=== PATIENT | female | born 1960 | race Caucasian/White ===

== ENCOUNTER 2019-10-03 07:07 | Day surgery (SDC) | payer OTHER ==
[~2019-10-03 07:07] MED LIST: COZAAR50 MG PO; PROLIA IM
== END 2019-10-03 11:30 | disposition home or self-care (01) ==
LOC: CIR.AMB 07:07
PROVIDERS: ATTEND Urology
DX: N20.0 Calculus of kidney (principal); Z20.828 Contact with and (suspected) exposure to other viral communicable diseases

== ENCOUNTER 2019-11-03 15:03 | Outpatient (CLI) | payer OTHER | END 2019-11-03 15:15 | disposition home or self-care (01) | LOC: RAD 15:03 | PROVIDERS: ATTEND Urology | DX: N20.0 Calculus of kidney (principal) ==

== ENCOUNTER 2019-12-19 09:00 | Day surgery (SDC) | payer OTHER ==
[~2019-12-19 09:00] MED LIST changes: +PROMETRIUM200 MG PO; +[UNRECOGNIZED DRUG - REMARK] PO
== END 2019-12-19 15:10 | disposition home or self-care (01) ==
LOC: CIR LITO 09:00
PROVIDERS: ATTEND Urology
DX: N20.0 Calculus of kidney (principal); Z20.828 Contact with and (suspected) exposure to other viral communicable diseases

== ENCOUNTER 2019-12-27 09:15 | Outpatient (CLI) | payer OTHER | END 2019-12-27 09:16 | disposition home or self-care (01) | LOC: RAD 09:15 | PROVIDERS: ATTEND Urology | DX: N20.1 Calculus of ureter (principal) ==

== ENCOUNTER 2020-01-24 09:54 | Outpatient (CLI) | payer OTHER | END 2020-01-24 10:04 | disposition home or self-care (01) | LOC: RAD 09:54 | PROVIDERS: ATTEND Urology | DX: N20.0 Calculus of kidney (principal) ==